=== PATIENT | female | born 1990 | race Caucasian/White ===

== ENCOUNTER 2017-05-08 17:32 | Emergency (ER) | payer MEDICAID ==
[~2017-05-08] VITALS: Ht 160 cm; Wt 70.0 kg
[2017-05-08 17:33] VITALS: BP 127/57; PULSE 83; RESP 18; TEMP 99.2; O2SAT 96
[2017-05-08 18:44] LABS: BLOOD, URINE NEG (NEG); COMMENT (UR) CULT NOT INDICATED; CULTURE IF INDICATED CULT NOT INDICATED; GLUCOSE,URINE NEG (NEG); KETONE, URINE NEG (NEG); MUCUS URINE FEW /lpf (OCC); NITRITE,URINE NEG (NEG); SQUAMOUS EPITHELIAL CELL URINE 3 /hpf (0-5); URINE COLOR YELLOW (YELLW/STRAW)
[2017-05-08] MEDS ORDERED: TYLE325T PO (18:44)
[2017-05-08] MEDS ORDERED: NAPR500 PO (18:44)
[2017-05-08] MEDS ORDERED: IRON1TAB7 PO (18:44)
--- NOTE | 2017-05-08 18:44 | PD ---
HPI Chief Complaint: Flank/Kidney Pain Time Seen by Provider: 18:13 Travel History International Travel<30 days: No Contact w/Intl Traveler<30days: No Traveled to known affect area: No History of Present Illness HPI 27-year-old female with history of recurring kidney infections presents to the emergency room for evaluation of left flank pain for the past 2 days. Patient states pain is constant. She has associated nausea without vomiting. Reports chills but has not actually taken her temperature. Patient states she fells with the urologist in [place] but has not seen him in several months. She just finished a 1 month long prescription of ciprofloxacin about 3 weeks ago. States she is trying to move down to [place] and has not established care with a PCP or urologist in the area because her insurance is not transferred yet. No other chronic medical conditions or daily medications. Denies history of kidney stones. Denies vaginal discharge. PFSH Past Medical History Diminished Hearing: No Genitourinary: Yes ?: Unknown LMP: 03/25/2017 Past Surgical History Surgical History: No Previous Surgery Social History Alcohol Use: No Tobacco Use: Yes Substance Use: No Allergies-Medications (Allergen,Severity, Reaction): Coded Allergies: Iodinated Contrast- Oral and IV Dye (Verified Allergy, Severe, ITCHING, ) latex (Verified Allergy, Severe, ITCHING , 05/08/17) Reported Meds & Prescriptions Reported Meds & Active Scripts Active Reported Tylenol (Acetaminophen) 325 Mg Tab 650 Mg PO Q6H PRN Naprosyn (Naproxen) 500 Mg Tab 500 Mg PO BID Nufera (Iron Combinations) 125-1-170 Tab 1 Tab PO DAILY Review of Systems Except as stated in HPI: all other systems reviewed are Neg Physical Exam Narrative GENERAL: Well-nourished, well-developed female in no acute distress. Afebrile. Ambulatory. SKIN: Focused skin assessment warm/dry. HEAD: Normocephalic. EYES: No scleral icterus. No injection or drainage. NECK: Supple, trachea midline. No JVD or lymphadenopathy. CARDIOVASCULAR: Regular rate and rhythm without murmurs, gallops, or rubs. RESPIRATORY: Breath sounds equal bilaterally. No accessory muscle use. GASTROINTESTINAL: Abdomen soft, non-tender, nondistended. No peritoneal signs. No rebound tenderness. BACK: Left-sided CVA tenderness. No rash. No point tenderness on palpation of the spine. Data Data Last Documented VS Vital Signs Date Time Temp Pulse Resp B/P (MAP) Pulse Ox O2 Delivery O2 Flow Rate FiO2 05/08/17 17:33 99.2 83 18 127/57 (80) 96 Room Air Orders Orders Urinalysis - C+S If Indicated (05/08/17 18:11) Complete Blood Count With Diff (05/08/17 18:53) Ed Urine Pregnancytest Poc (05/08/17 18:53) Iv Access Insert/Monitor (05/08/17 18:53) Ketorolac Inj (Toradol Inj) (05/08/17 19:00) Sodium Chloride 0.9% Flush (Ns Flush) (05/08/17 19:00) Lipase (05/08/17 18:53) Comprehensive Metabolic Panel (05/08/17 18:53) Ct Abd/Pel W/O Iv Contrast (05/08/17 20:01) Labs Laboratory Tests Test 05/08/17 18:20 05/08/17 19:05 Urine Color YELLOW Urine Turbidity CLEAR Urine pH 6.0 Urine Specific [place] 1.023 Urine Protein NEG mg/dL Urine Glucose (UA) NEG mg/dL Urine Ketones NEG mg/dL Urine Occult Blood NEG Urine Nitrite NEG Urine Bilirubin NEG Urine Urobilinogen LESS THAN 2.0 MG/DL Urine Leukocyte Esterase NEG Urine RBC LESS THAN 1 /hpf Urine WBC 1 /hpf Urine Squamous Epithelial Cells 3 /hpf Urine Mucus FEW /lpf Microscopic Urinalysis Comment CULT NOT INDICATED White Blood Count 7.9 TH/MM3 Red Blood Count 3.79 MIL/MM3 Hemoglobin 10.2 GM/DL Hematocrit 31.7 % Mean Corpuscular Volume 83.6 FL Mean Corpuscular Hemoglobin 26.9 PG Mean Corpuscular Hemoglobin Concent 32.1 % Red Cell Distribution Width 14.6 % Platelet Count 327 TH/MM3 Mean Platelet Volume 8.1 FL Neutrophils (%) (Auto) 55.1 % Lymphocytes (%) (Auto) 36.2 % Monocytes (%) (Auto) 6.7 % Eosinophils (%) (Auto) 1.2 % Basophils (%) (Auto) 0.8 % Neutrophils # (Auto) 4.4 TH/MM3 Lymphocytes # (Auto) 2.9 TH/MM3 Monocytes # (Auto) 0.5 TH/MM3 Eosinophils # (Auto) 0.1 TH/MM3 Basophils # (Auto) 0.1 TH/MM3 CBC Comment DIFF FINAL Differential Comment Blood Urea Nitrogen 12 MG/DL Creatinine 0.58 MG/DL Random Glucose 84 MG/DL Total Protein 7.0 GM/DL Albumin 3.2 GM/DL Calcium Level 8.7 MG/DL Alkaline Phosphatase 67 U/L Aspartate Amino Transf (AST/SGOT) 12 U/L Alanine Aminotransferase (ALT/SGPT) 13 U/L Total Bilirubin 0.2 MG/DL Sodium Level 139 MEQ/L Potassium Level 4.0 MEQ/L Chloride Level 107 MEQ/L Carbon Dioxide Level 28.0 MEQ/L Anion Gap 4 MEQ/L Estimat Glomerular Filtration Rate 126 ML/MIN Lipase 85 U/L MDM Medical Decision Making Medical Screen Exam Complete: Yes Emergency Medical Condition: Yes Medical Record Reviewed: Yes Differential Diagnosis Nephrolithiasis, UTI, STD, PID Narrative Course 27-year-old female presents to the emergency room for evaluation of constant, sharp left flank pain for the past 2 days. Patient has history of multiple Kidney infections as well as with urologist in [place]. She has not established with one done here. Last saw him 3 months ago. She just finished a 1 month course of ciprofloxacin 3 weeks ago. States she typically gets kidney infections that feel like this. She has associated dysuria. Denies history of kidney stones. CBC and CMP are unremarkable. UA is unremarkable. CT was obtained after normal UA to evaluate for nephrolithiasis given flank pain. CT ordered and pending, patient signed out to nighttime provider. Condition: Stable Eloisa Coleman May 08, 2017 18:44
[2017-05-08] MEDS ORDERED: SODIUM CHLORIDE 0.9% FLUSH 10 ML FLUSH IVF PRN (19:00)
[2017-05-08] MEDS ORDERED: KETOROLAC TROMETHAMINE 30 MG/ML (IVP) VIAL IV PUSH ONE (19:00)
[2017-05-08 19:42] LABS: AUTOMATED NEUTROPHIL # 4.4 TH/MM3 (1.8-7.7); BASOPHIL # 0.1 TH/MM3 (0-0.2); BASOPHIL % 0.8 % (0.0-2.0); EOSINOPHIL # 0.1 TH/MM3 (0-0.4); EOSINOPHIL % 1.2 % (0.0-4.0); HEMATOCRIT 31.7 % (35.0-46.0); HEMO FLAGS DIFF FINAL; LYMPH % 36.2 % (9.0-44.0); LYMPHOCYTE # 2.9 TH/MM3 (1.0-4.8); MEAN CELL VOLUME 83.6 FL (80.0-100.0); MEAN CORPUSCULAR HEMOGLOBIN 26.9 PG (27.0-34.0); MEAN CORPUSCULAR HGB CONC 32.1 % (32.0-36.0); MONO % 6.7 % (0.0-8.0); NEUT % 55.1 % (16.0-70.0); PLATELET COUNT 327 TH/MM3 (150-450); RED BLOOD COUNT 3.79 MIL/MM3 (4.00-5.30); RED CELL DISTRIBUTION WIDTH 14.6 % (11.6-17.2); WHITE BLOOD COUNT 7.9 TH/MM3 (4.0-11.0)
[2017-05-08 20:04] LABS: ANION GAP 4 MEQ/L (5-15); AST (GOT) 12 U/L (15-37); BLOOD UREA NITROGEN 12 MG/DL (7-18); CHLORIDE 107 MEQ/L (98-107); GLOMERULAR FILTRATION RATE 126 ML/MIN (>89); SODIUM (NA) 139 MEQ/L (136-145)
[2017-05-08 20:05] LABS: ALT (GPT) 13 U/L (10-53)
[2017-05-08 20:07] LABS: ALKALINE PHOSPHATASE 67 U/L (45-117); TOTAL BILIRUBIN ADULT 0.2 MG/DL (0.2-1.0)
--- NOTE | 2017-05-08 21:49 | RADRPT ---
EXAM DATE/TIME: 05/08/2017 20:52 [facility] COMPARISON: No previous studies available for comparison. INDICATIONS : Left flank pain past 2 days. ORAL CONTRAST: No oral contrast ingested. RADIATION DOSE: 10.75 CTDIvol (mGy) MEDICAL HISTORY : None SURGICAL HISTORY : None. ENCOUNTER: Initial ACUITY: 2 days PAIN SCALE: 7/10 LOCATION: Left flank TECHNIQUE: Renal colic protocol. Volumetric scanning of the abdomen and pelvis was performed. Using automated exposure control and adjustment of the mA and/or kV according to patient size, radiation dose was kep t as low as reasonably achievable to obtain optimal diagnostic quality images. DICOM format image da ta is available electronically for review and comparison. FINDINGS: Right side: no calcified renal stones and no evidence of hydronephrosis. The right ureter is normal in dimension and no calcified ureteral stones. Left side: No calcified renal stones and no evidence of hydronephrosis. The left ureter is normal in dimension without calcified stones. Bladder: Smooth margins no calcifications within the lumen. Other: Anteverted uterus. Fullness in both hilar regions adnexal suggesting possible ovarian cysts. No eliceo dence of free fluid. No dilated loops of small or large bowel. No calcified gallstones. CONCLUSION: Negative renal colic CT. Jesus Mcallister MD on May 08, 2017 at 21:45 Board Certified Radiologist. This report was verified electronically.
[2017-05-08] MEDS ORDERED: TRAM50 PO (21:54)
--- NOTE | 2017-05-08 21:54 | PD ---
Physical Exam Narrative GENERAL: SKIN: Warm and dry. HEAD: Atraumatic. Normocephalic. EYES: Pupils equal and round. No scleral icterus. No injection or drainage. ENT: No nasal bleeding or discharge. Mucous membranes pink and moist. NECK: Trachea midline. No JVD. CARDIOVASCULAR: Regular rate and rhythm. RESPIRATORY: No accessory muscle use. Clear to auscultation. Breath sounds equal bilaterally. GASTROINTESTINAL: Abdomen soft, non-tender, nondistended. MUSCULOSKELETAL: Extremities without clubbing, cyanosis, or edema. No obvious deformities. NEUROLOGICAL: Awake and alert. No obvious cranial nerve deficits. Motor grossly within normal limits. Five out of 5 muscle strength in the arms and legs. Normal speech. PSYCHIATRIC: Appropriate mood and affect; insight and judgment normal. Data Data Last Documented VS Vital Signs Date Time Temp Pulse Resp B/P (MAP) Pulse Ox O2 Delivery O2 Flow Rate FiO2 05/08/17 17:33 99.2 83 18 127/57 (80) 96 Room Air Orders Orders Urinalysis - C+S If Indicated (05/08/17 18:11) Complete Blood Count With Diff (05/08/17 18:53) Ed Urine Pregnancytest Poc (05/08/17 18:53) Iv Access Insert/Monitor (05/08/17 18:53) Ketorolac Inj (Toradol Inj) (05/08/17 19:00) Sodium Chloride 0.9% Flush (Ns Flush) (05/08/17 19:00) Lipase (05/08/17 18:53) Comprehensive Metabolic Panel (05/08/17 18:53) Ct Abd/Pel W/O Iv Contrast (05/08/17 20:01) Labs Laboratory Tests Test 05/08/17 18:20 05/08/17 19:05 Urine Color YELLOW Urine Turbidity CLEAR Urine pH 6.0 Urine Specific [place] 1.023 Urine Protein NEG mg/dL Urine Glucose (UA) NEG mg/dL Urine Ketones NEG mg/dL Urine Occult Blood NEG Urine Nitrite NEG Urine Bilirubin NEG Urine Urobilinogen LESS THAN 2.0 MG/DL Urine Leukocyte Esterase NEG Urine RBC LESS THAN 1 /hpf Urine WBC 1 /hpf Urine Squamous Epithelial Cells 3 /hpf Urine Mucus FEW /lpf Microscopic Urinalysis Comment CULT NOT INDICATED White Blood Count 7.9 TH/MM3 Red Blood Count 3.79 MIL/MM3 Hemoglobin 10.2 GM/DL Hematocrit 31.7 % Mean Corpuscular Volume 83.6 FL Mean Corpuscular Hemoglobin 26.9 PG Mean Corpuscular Hemoglobin Concent 32.1 % Red Cell Distribution Width 14.6 % Platelet Count 327 TH/MM3 Mean Platelet Volume 8.1 FL Neutrophils (%) (Auto) 55.1 % Lymphocytes (%) (Auto) 36.2 % Monocytes (%) (Auto) 6.7 % Eosinophils (%) (Auto) 1.2 % Basophils (%) (Auto) 0.8 % Neutrophils # (Auto) 4.4 TH/MM3 Lymphocytes # (Auto) 2.9 TH/MM3 Monocytes # (Auto) 0.5 TH/MM3 Eosinophils # (Auto) 0.1 TH/MM3 Basophils # (Auto) 0.1 TH/MM3 CBC Comment DIFF FINAL Differential Comment Blood Urea Nitrogen 12 MG/DL Creatinine 0.58 MG/DL Random Glucose 84 MG/DL Total Protein 7.0 GM/DL Albumin 3.2 GM/DL Calcium Level 8.7 MG/DL Alkaline Phosphatase 67 U/L Aspartate Amino Transf (AST/SGOT) 12 U/L Alanine Aminotransferase (ALT/SGPT) 13 U/L Total Bilirubin 0.2 MG/DL Sodium Level 139 MEQ/L Potassium Level 4.0 MEQ/L Chloride Level 107 MEQ/L Carbon Dioxide Level 28.0 MEQ/L Anion Gap 4 MEQ/L Estimat Glomerular Filtration Rate 126 ML/MIN Lipase 85 U/L [facility] Medical Record Reviewed: Yes Supervised Visit with JUAN PABLO: Yes Narrative Course ua neg for uti, ct abd/pelvis neg as read by radiologist Diagnosis Primary Impression: Left flank discomfort Patient Instructions: Flank Pain (ED), General Instructions Scripts Tramadol (Ultram) 50 Mg Tab 50 MG PO Q6H Y for PAIN, #10 TAB 0 Refills Prov: Clayton Nguyen MD 05/08/17 Disposition: 01 DISCHARGE HOME Condition: Stable Clayton Nguyen MD May 08, 2017 21:54
== END 2017-05-08 22:11 | disposition home or self-care (01) ==
LOC: NEPD 17:32
DX: R10.9 Unspecified abdominal pain (principal); R30.0 Dysuria; R68.83 Chills (without fever); Z79.899 Other long term (current) drug therapy; Z72.0 Tobacco use
CPT/HCPCS: 74176; 80053; 81001; 83690; 84703; 85025; 96374; 99285; J1885

== ENCOUNTER 2017-07-04 11:47 | Emergency (ER) | payer MEDICAID, OTHER ==
[~2017-07-04] VITALS: Ht 160 cm; Wt 72.7 kg
[~2017-07-04 11:47] MED LIST: IRON1TAB7 PO; NAPR500 PO; TRAM50 PO; TYLE325T PO
[2017-07-04 11:49] VITALS: BP 129/75; PULSE 98; RESP 14; TEMP 99.8; O2SAT 100
[2017-07-04 13:06] LABS: BASOPHIL % 0.5 % (0.0-2.0); EOSINOPHIL % 0.4 % (0.0-4.0); HEMATOCRIT 35.6 % (35.0-46.0); HEMOGLOBIN 11.8 GM/DL (11.6-15.3); LYMPH % 23.8 % (9.0-44.0); LYMPHOCYTE # 1.5 TH/MM3 (1.0-4.8); MEAN CORPUSCULAR HEMOGLOBIN 27.2 PG (27.0-34.0); MEAN CORPUSCULAR HGB CONC 33.1 % (32.0-36.0); MEAN PLATELET VOLUME 8.1 FL (7.0-11.0); MONO % 12.7 % (0.0-8.0); MONOCYTE # 0.8 TH/MM3 (0-0.9); NEUT % 62.6 % (16.0-70.0); PLATELET COUNT 337 TH/MM3 (150-450); RED BLOOD COUNT 4.34 MIL/MM3 (4.00-5.30); RED CELL DISTRIBUTION WIDTH 14.2 % (11.6-17.2); WHITE BLOOD COUNT 6.4 TH/MM3 (4.0-11.0)
[2017-07-04 13:18] LABS: BACTERIA, URINE RARE /hpf; BILIRUBIN, URINE NEG (NEG); BLOOD, URINE TRACE (NEG); GLUCOSE,URINE NEG (NEG); KETONE, URINE NEG (NEG); MUCUS URINE FEW /lpf (OCC); NITRITE,URINE NEG (NEG); PH, URINE 5.5 (5.0-8.5); SQUAMOUS EPITHELIAL CELL URINE 5 /hpf (0-5); URINE COLOR YELLOW (YELLW/STRAW); URINE LEUKOCYTE ESTERASE NEG (NEG)
[2017-07-04 13:40] LABS: ALBUMIN 3.6 GM/DL (3.4-5.0); AST (GOT) 13 U/L (15-37); BICARBONATE 26.4 MEQ/L (21.0-32.0); BLOOD UREA NITROGEN 10 MG/DL (7-18); CALCIUM 8.7 MG/DL (8.5-10.1); CHLORIDE 105 MEQ/L (98-107); CREATININE 0.71 MG/DL (0.50-1.00); GLOMERULAR FILTRATION RATE 100 ML/MIN (>89); GLUCOSE,RANDOM 86 MG/DL (74-106); SODIUM (NA) 140 MEQ/L (136-145)
[2017-07-04 13:45] LABS: ALKALINE PHOSPHATASE 68 U/L (45-117); ALT (GPT) 17 U/L (10-53); TOTAL BILIRUBIN ADULT 0.3 MG/DL (0.2-1.0)
[2017-07-04] MEDS ORDERED: PENI500T PO (14:49)
--- NOTE | 2017-07-04 15:05 | PD ---
HPI Chief Complaint: Flank/Kidney Pain Time Seen by Provider: 13:56 Travel History International Travel<30 days: No Contact w/Intl Traveler<30days: No Traveled to known affect area: No History of Present Illness HPI The patient was seen and examined in the presence of the nurse. This patient complains of sore throat. She has pain when she swallows. She also complains of fever and general achiness and has some pain in bilateral low back. No acute injury. Symptoms severity is moderate. No alleviating factors. No exacerbating factors. Duration is 3 days PFSH Past Medical History Diminished Hearing: No Genitourinary: Yes ?: Not LMP: 06/22/2017 Social History Alcohol Use: No Tobacco Use: Yes Substance Use: No Allergies-Medications (Allergen,Severity, Reaction): Coded Allergies: Iodinated Contrast- Oral and IV Dye (Verified Allergy, Severe, ITCHING, ) latex (Verified Allergy, Severe, ITCHING , 07/04/17) codeine (Verified Adverse Reaction, Intermediate, Rash, 07/04/17) Reported Meds & Prescriptions Reported Meds & Active Scripts Active Penicillin V Potassium 500 Mg Tab 500 Mg PO Q6H 7 Days Ultram (Tramadol HCl) 50 Mg Tab 50 Mg PO Q6H PRN Reported Tylenol (Acetaminophen) 325 Mg Tab 650 Mg PO Q6H PRN Naprosyn (Naproxen) 500 Mg Tab 500 Mg PO BID Nufera (Iron Combinations) 125-1-170 Tab 1 Tab PO DAILY Review of Systems General / Constitutional: Positive: Fever Eyes: No: Visual changes HENT: Positive: Sore Throat, No: Headaches Cardiovascular: No: Chest Pain or Discomfort Respiratory: No: Shortness of Breath Gastrointestinal: No: Abdominal Pain Genitourinary: Positive: Flank Pain, No: Dysuria Musculoskeletal: Positive: Pain Skin: No Rash Neurologic: No: Weakness Psychiatric: No: Depression Endocrine: No: Polydipsia Hematologic/Lymphatic: No: Easy Bruising Physical Exam Narrative GENERAL: Well-nourished, well-developed patient in no apparent distress. SKIN: Focused skin assessment reveals no rash and nodules. Skin is Warm and dry. HEAD: Atraumatic. Normocephalic. EYES: Pupils equal and round. No scleral icterus. No injection or drainage. ENT: No nasal bleeding or discharge. Mucous membranes pink and moist. Patient has enlarged right tonsillar area covered with white exudate. Uvula midline NECK: Trachea midline. No JVD. Some cervical lymphadenopathy present. No meningeal signs CARDIOVASCULAR: Regular rate and rhythm. No murmur appreciated. RESPIRATORY: No accessory muscle use. Clear to auscultation. Breath sounds equal bilaterally. GASTROINTESTINAL: Abdomen soft, non-tender, nondistended. Hepatic and splenic margins not palpable. MUSCULOSKELETAL: No obvious deformities. No clubbing. No cyanosis. No edema. NEUROLOGICAL: Awake and alert. No obvious cranial nerve deficits. Motor grossly within normal limits. Normal speech. PSYCHIATRIC: Appropriate mood and affect; insight and judgment normal. Data Data Last Documented VS Vital Signs Date Time Temp Pulse Resp B/P (MAP) Pulse Ox O2 Delivery O2 Flow Rate FiO2 07/04/17 14:23 16 07/04/17 11:49 99.8 98 129/75 (93) 100 Orders Orders Complete Blood Count With Diff (07/04/17 12:08) Comprehensive Metabolic Panel (07/04/17 12:08) Urinalysis - C+S If Indicated (07/04/17 12:08) Ed Urine Pregnancytest Poc (07/04/17 12:08) Influenzae A/B Antigen (07/04/17 12:08) Group A Rapid Strep Screen (07/04/17 12:24) Strep Culture (Group A) (07/04/17 12:30) Labs Laboratory Tests Test 07/04/17 12:30 White Blood Count 6.4 TH/MM3 Red Blood Count 4.34 MIL/MM3 Hemoglobin 11.8 GM/DL Hematocrit 35.6 % Mean Corpuscular Volume 82.0 FL Mean Corpuscular Hemoglobin 27.2 PG Mean Corpuscular Hemoglobin Concent 33.1 % Red Cell Distribution Width 14.2 % Platelet Count 337 TH/MM3 Mean Platelet Volume 8.1 FL Neutrophils (%) (Auto) 62.6 % Lymphocytes (%) (Auto) 23.8 % Monocytes (%) (Auto) 12.7 % Eosinophils (%) (Auto) 0.4 % Basophils (%) (Auto) 0.5 % Neutrophils # (Auto) 4.0 TH/MM3 Lymphocytes # (Auto) 1.5 TH/MM3 Monocytes # (Auto) 0.8 TH/MM3 Eosinophils # (Auto) 0.0 TH/MM3 Basophils # (Auto) 0.0 TH/MM3 CBC Comment DIFF FINAL Differential Comment Urine Color YELLOW Urine Turbidity HAZY Urine pH 5.5 Urine Specific [place] 1.015 Urine Protein TRACE mg/dL Urine Glucose (UA) NEG mg/dL Urine Ketones NEG mg/dL Urine Occult Blood TRACE Urine Nitrite NEG Urine Bilirubin NEG Urine Urobilinogen LESS THAN 2.0 MG/DL Urine Leukocyte Esterase NEG Urine RBC 1 /hpf Urine WBC 4 /hpf Urine Squamous Epithelial Cells 5 /hpf Urine Bacteria RARE /hpf Urine Mucus FEW /lpf Microscopic Urinalysis Comment CULT NOT INDICATED Blood Urea Nitrogen 10 MG/DL Creatinine 0.71 MG/DL Random Glucose 86 MG/DL Total Protein 8.0 GM/DL Albumin 3.6 GM/DL Calcium Level 8.7 MG/DL Alkaline Phosphatase 68 U/L Aspartate Amino Transf (AST/SGOT) 13 U/L Alanine Aminotransferase (ALT/SGPT) 17 U/L Total Bilirubin 0.3 MG/DL Sodium Level 140 MEQ/L Potassium Level 3.9 MEQ/L Chloride Level 105 MEQ/L Carbon Dioxide Level 26.4 MEQ/L Anion Gap 9 MEQ/L Estimat Glomerular Filtration Rate 100 ML/MIN MDM Medical Decision Making Medical Screen Exam Complete: Yes Emergency Medical Condition: Yes Medical Record Reviewed: Yes Differential Diagnosis Tonsillitis, strep pharyngitis, peritonsillar abscess Narrative Course I have reviewed the patient's electronic medical record. CBC is normal Metabolic profile is normal Urinalysis is clean Influenza swab is negative Strep swab was also negative but given her clinical presentation and the fact that this is a specific test and not overly sensitive, I think she has an acute tonsillitis likely from strep. She lacks viral symptoms. I wrote her one week of penicillin VK Diagnosis Primary Impression: Tonsillitis with exudate Additional Instructions: The patient was advised to follow up with their physician and return if they worsen. Med/Other Pt SpecificInfo: Prescription(s) given Scripts Penicillin V Potassium (Penicillin V Potassium) 500 Mg Tab 500 MG PO Q6H for Infection for 7 Days, #28 TAB 0 Refills Prov: Nayan Schaefer MD 07/04/17 Disposition: 01 DISCHARGE HOME Condition: Stable Nayan Schaefer MD Jul 04, 2017 15:05
== END 2017-07-04 15:16 | disposition home or self-care (01) ==
LOC: NEPD 11:47
DX: J03.90 Acute tonsillitis, unspecified (principal); M54.5 Low back pain; Z72.0 Tobacco use; Z79.899 Other long term (current) drug therapy; Z88.5 Allergy status to narcotic agent
CPT/HCPCS: 80053; 81001; 84703; 85025; 87081; 87804; 87880; 99283

== ENCOUNTER 2017-11-24 14:10 | Emergency (ER) | payer OTHER ==
[~2017-11-24] VITALS: Ht 160 cm; Wt 75.0 kg
[~2017-11-24 14:10] MED LIST changes: +PENI500T PO
[2017-11-24 14:14] VITALS: BP 130/70; PULSE 75; RESP 18; TEMP 98; O2SAT 100
--- NOTE | 2017-11-24 14:41 | PD ---
HPI Chief Complaint: Abdominal Pain Time Seen by Provider: 14:32 Travel History International Travel<30 days: No Contact w/Intl Traveler<30days: No Traveled to known affect area: No History of Present Illness HPI 27-year-old female presents emergency department for evaluation of pelvic pain worsening over the last month. Patient states about 2 weeks ago she began having a vaginal discharge. She denies any fever or chills. She denies any burning with urination. She states she cannot be as her last menstrual cycle was November 12. She is in a monogamous relationship and is not concerned about STD. Patient denies any nausea, vomiting, or diarrhea. She has no other symptoms to report. PFSH Past Medical History Diminished Hearing: No Genitourinary: Yes ?: Not LMP: 11/12/17 Social History Alcohol Use: No Tobacco Use: Yes Substance Use: No Allergies-Medications (Allergen,Severity, Reaction): Coded Allergies: Iodinated Contrast- Oral and IV Dye (Verified Allergy, Severe, ITCHING, 11/24/17) latex (Verified Allergy, Severe, ITCHING , 11/24/17) codeine (Verified Adverse Reaction, Intermediate, Rash, 11/24/17) Reported Meds & Prescriptions Reported Meds & Active Scripts Active Doxycycline Hyclate 100 Mg Cap 100 Mg PO BID Review of Systems Except as stated in HPI: all other systems reviewed are Neg Physical Exam Narrative GENERAL: Well-nourished, well-developed female patient in no acute distress HEAD: Normocephalic. EYES: No scleral icterus. No injection or drainage. NECK: Supple, trachea midline. No JVD or lymphadenopathy. CARDIOVASCULAR: Regular rate and rhythm without murmurs, gallops, or rubs. RESPIRATORY: Breath sounds equal bilaterally. No accessory muscle use. GASTROINTESTINAL: Abdomen soft, non-tender, with suprapubic tenderness, mild guarding. No rebound tenderness. GENITOURINARY: Normal external genitalia without lesions or erythema. Vaginal vault with thick white discharge.. Cervical os was closed without drainage. cervical motion tenderness. Uterus tender and but nonenlarged. Bilateral adnexa nontender without masses. MUSCULOSKELETAL: No cyanosis, or edema. BACK: Nontender without obvious deformity. No CVA tenderness. Data Data Last Documented VS Vital Signs Date Time Temp Pulse Resp B/P (MAP) Pulse Ox O2 Delivery O2 Flow Rate FiO2 11/24/17 14:14 98.0 75 18 130/70 (90) 100 Orders Orders Wet Prep Profile (11/24/17 15:08) Gc And Chlamydia Pcr (11/24/17 15:08) Urinalysis - C+S If Indicated (11/24/17 15:08) Ed Urine Pregnancytest Poc (11/24/17 15:08) Ceftriaxone Inj (Rocephin Inj) (11/24/17 16:45) Azithromycin (Zithromax) (11/24/17 16:45) Ed Discharge Order (11/24/17 16:46) Labs Laboratory Tests Test 11/24/17 15:30 Urine Color LIGHT-YELLOW Urine Turbidity CLEAR Urine pH 7.5 Urine Specific [place] 1.015 Urine Protein NEG mg/dL Urine Glucose (UA) NEG mg/dL Urine Ketones NEG mg/dL Urine Occult Blood NEG Urine Nitrite NEG Urine Bilirubin NEG Urine Urobilinogen LESS THAN 2.0 MG/DL Urine Leukocyte Esterase NEG Urine RBC 1 /hpf Urine WBC 3 /hpf Urine Squamous Epithelial Cells 5 /hpf Urine Transitional Epithelial Cells 1 /hpf Urine Mucus FEW /lpf Microscopic Urinalysis Comment CULT NOT INDICATED Clue Cells (Wet Prep) NONE SEEN Vaginal Trichomonas (Wet Prep) NONE SEEN Vaginal Yeast (Wet Prep) NONE SEEN MDM Medical Decision Making Medical Screen Exam Complete: Yes Emergency Medical Condition: Yes Medical Record Reviewed: Yes Differential Diagnosis Cystitis versus pyelonephritis versus STD versus PID Narrative Course 27-year-old female presents emergency department for evaluation of lower abdominal pain. Patient does have suprapubic tenderness to palpation, cervical motion tenderness, and her uterus is tender. Urinalysis and wet prep are negative. GC PCR is pending. Patient be treated empirically. She is counseled on safe sex practices and encouraged follow-up with primary care provider and gynecology. She agrees to return immediately with acute worsening of symptoms. Diagnosis Primary Impression: Pelvic pain Additional Impression: Vaginal discharge Referrals: Instruction Assistant Principal Primary Care Physician Patient Instructions: General Instructions, Pelvic Pain (ED) Additional Instructions: Follow-up with a primary care provider See gynecology evaluation Return immediately with acute worsening of symptoms Med/Other Pt SpecificInfo: Prescription(s) given Scripts Doxycycline Hyclate (Doxycycline Hyclate) 100 Mg Cap 100 MG PO BID for Infection, #20 CAP 0 Refills Prov: Cindy Doran 11/24/17 Disposition: 01 DISCHARGE HOME Condition: Stable Cindy Doran Nov 24, 2017 14:41
[2017-11-24 16:12] LABS: BILIRUBIN, URINE NEG (NEG); BLOOD, URINE NEG (NEG); GLUCOSE,URINE NEG (NEG); KETONE, URINE NEG (NEG); MUCUS URINE FEW /lpf (OCC); NITRITE,URINE NEG (NEG); PH, URINE 7.5 (5.0-8.5); SQUAMOUS EPITHELIAL CELL URINE 5 /hpf (0-5); TRANSITIONAL EPI CELLS, URINE 1 /hpf; URINE COLOR LIGHT-YELLOW (YELLW/STRAW); URINE LEUKOCYTE ESTERASE NEG (NEG)
[2017-11-24] MEDS ORDERED: AZITHROMYCIN 250 MG TAB PO ONE (16:45)
[2017-11-24] MEDS ORDERED: cefTRIAXone 250 MG VIAL IM ONE (16:45)
[2017-11-24] MEDS ORDERED: DOXY100C PO (16:47)
== END 2017-11-24 19:47 | disposition home or self-care (01) ==
LOC: NEPD 14:10
DX: R10.2 Pelvic and perineal pain (principal); N89.8 Other specified noninflammatory disorders of vagina; Z72.0 Tobacco use; Z88.5 Allergy status to narcotic agent
CPT/HCPCS: 81001; 84703; 87210; 87491; 87591; 96372; 99283; J0696

== ENCOUNTER 2017-11-26 01:37 | Emergency (ER) | payer OTHER ==
[~2017-11-26] VITALS: Ht 160 cm; Wt 75.0 kg
[~2017-11-26 01:37] MED LIST changes: +DOXY100C PO; -IRON1TAB7 PO; -NAPR500 PO; -PENI500T PO; -TRAM50 PO; -TYLE325T PO
[2017-11-26 01:42] VITALS: BP 115/71; PULSE 73; RESP 18; TEMP 98.5; O2SAT 100
[2017-11-26 02:34] LABS: BILIRUBIN, URINE NEG (NEG); BLOOD, URINE NEG (NEG); GLUCOSE,URINE NEG (NEG); KETONE, URINE TRACE mg/dL (NEG); MUCUS URINE MANY /lpf (OCC); NITRITE,URINE NEG (NEG); SQUAMOUS EPITHELIAL CELL URINE 1 /hpf (0-5); URINE COLOR YELLOW (YELLW/STRAW); URINE LEUKOCYTE ESTERASE NEG (NEG)
[2017-11-26] MEDS ORDERED: SODIUM CHLOR 0.9% 1000 ML INJ 1,000 ML IV ONE (02:45)
[2017-11-26] MEDS ORDERED: KETOROLAC TROMETHAMINE 30 MG/ML (IVP) VIAL IV PUSH ONE (02:45)
[2017-11-26] MEDS ORDERED: PROCHLORPERAZINE INJ 10 MG/2 ML VIAL IV PUSH ONE (02:45)
[2017-11-26 03:01] VITALS: O2SAT 98
--- NOTE | 2017-11-26 03:10 | PD ---
HPI Chief Complaint: Back/ Neck Pain or Injury Time Seen by Provider: 02:06 Travel History International Travel<30 days: No Contact w/Intl Traveler<30days: No Traveled to known affect area: No History of Present Illness HPI The patient is a 27 year old female who presents to the [facility] emergency department with a history of pelvic pain that she reports began over the last month and has been gradually worsening with time. The patient reports that she was seen on November 25, 2007 pelvic infection. She is currently on doxycycline. The patient reports a prior history 2 months ago also having a kidney infection. The patient reports that today she was awakened from sound sleep with right-sided flank pain. She was concerned about a possible recurrence of a kidney infection, though she decided to come to the emergency department. She reports that ibuprofen has not been alleviating her pain. She reports having nausea without vomiting. She denies having any diarrhea. She last moved her bowels earlier today. The patient reports that she was experiencing a vaginal discharge over the last couple weeks prior to being evaluated in the emergency department on November 24. The patient did have a pelvic examination done at that time. On review of systems otherwise, the patient denies having any known recent fevers, cough or congestion, neck pain, chest pain, shortness of breath, dysuria, urinary frequency, urinary urgency, hematuria, or neurologic symptoms. The patient denies any trauma, heavy lifting , or new exercise program that could have contributed to her right-sided flank pain. LMP November 12, 2017. [facility] Past Medical History Narrative Medical The patient's past medical history is significant for a kidney infection 2 months ago. Asthma: Yes Diminished Hearing: No Genitourinary: Yes Tetanus Vaccination: Unknown Influenza Vaccination: No ?: Not LMP: 11/12/2017 : 1 Para: 1 Miscarriage: 0 : 0 Past Surgical History Surgical History: No Previous Surgery Social History Alcohol Use: No Tobacco Use: Yes (1ppd) Substance Use: No Allergies-Medications (Allergen,Severity, Reaction): Coded Allergies: Iodinated Contrast- Oral and IV Dye (Verified Allergy, Severe, ITCHING, 05/05) latex (Verified Allergy, Severe, ITCHING , 11/26/17) codeine (Verified Adverse Reaction, Intermediate, Rash, 11/26/17) Reported Meds & Prescriptions Reported Meds & Active Scripts Active Doxycycline Hyclate 100 Mg Cap 100 Mg PO BID Review of Systems Except as stated in HPI: all other systems reviewed are Neg General / Constitutional: No: Fever Eyes: No: Visual changes HENT: No: Headaches Cardiovascular: No: Chest Pain or Discomfort Respiratory: No: Shortness of Breath Gastrointestinal: Positive: Nausea, Abdominal Pain, No: Vomiting, Diarrhea, Changes in Bowel Habits, Indigestion, Loss of Appetite Genitourinary: Positive: Pelvic Pain, Flank Pain (Right-sided flank), No: Urgency, Frequency, Dysuria Musculoskeletal: No: Pain Skin: No Rash Neurologic: No: Weakness Psychiatric: No: Depression Endocrine: No: Polydipsia Hematologic/Lymphatic: No: Easy Bruising Physical Exam Narrative General: The patient is a well-developed well-nourished female in no acute distress. Head and Neck exam: Head is normocephalic atraumatic. Eyes: EOMI, pupils are equal round and reactive to light. Nose: Midline septum with pink mucous membranes Mouth: Dentition unremarkable. Moist mucus membranes. Posterior oropharynx is not erythematous. No tonsillar hypertrophy. Uvula midline. Airway patent. Neck: No palpable lymphadenopathy. No nuchal rigidity. No thyromegaly. Cardiovascular: Regular rate and rhythm without murmurs, gallops, or rubs. No pulse deficit to the extremities on simultaneous auscultation and palpation of her radial artery. Lungs: Clear to auscultation bilaterally. No wheezes, rhonchi, or rales. Abdomen: Soft, with tenderness on palpation of bilateral lower quadrants of the abdomen in the suprapubic area, no other tenderness on palpation of all 4 quadrants of the abdomen. No guarding, rebound, or rigidity. Normal bowel sounds are audible. No tenderness on palpation of McBurney's point. Extremities: No clubbing, cyanosis, or edema. 2+ pulses in all 4 extremities. Back: No spinous process tenderness to palpation. The patient reports right-sided CVA tenderness on palpation. Neurologic Exam: Grossly nonfocal. Skin Exam: No rash noted. Intact skin that is warm and dry. Data Data Last Documented VS Vital Signs Date Time Temp Pulse Resp B/P (MAP) Pulse Ox O2 Delivery O2 Flow Rate FiO2 11/26/17 03:01 98 Room Air 11/26/17 01:42 98.5 73 18 115/71 (86) Orders Orders Urinalysis - C+S If Indicated (11/26/17 02:09) Complete Blood Count With Diff (11/26/17 02:32) Comprehensive Metabolic Panel (11/26/17 02:32) C-Reactive Protein (Crp) (11/26/17 02:32) Lipase (11/26/17 02:32) Iv Access Insert/Monitor (11/26/17 02:32) Ecg Monitoring (11/26/17 02:32) Oximetry (11/26/17 02:32) Ed Urine Pregnancytest Poc (11/26/17 02:32) Sodium Chlor 0.9% 1000 Ml Inj (Ns 1000 M (11/26/17 02:45) Prochlorperazine Inj (Compazine Inj) (11/26/17 02:45) Ketorolac Inj (Toradol Inj) (11/26/17 02:45) Ct Abd/Pel W/O Iv Contrast (11/26/17 02:32) Labs Laboratory Tests Test 11/26/17 02:18 11/26/17 03:03 Urine Color YELLOW Urine Turbidity CLEAR Urine pH 6.0 Urine Specific [place] 1.042 Urine Protein 30 mg/dL Urine Glucose (UA) NEG mg/dL Urine Ketones TRACE mg/dL Urine Occult Blood NEG Urine Nitrite NEG Urine Bilirubin NEG Urine Urobilinogen LESS THAN 2.0 MG/DL Urine Leukocyte Esterase NEG Urine RBC LESS THAN 1 /hpf Urine WBC 2 /hpf Urine Squamous Epithelial Cells 1 /hpf Urine Mucus MANY /lpf Microscopic Urinalysis Comment CULT NOT INDICATED White Blood Count 9.1 TH/MM3 Red Blood Count 3.85 MIL/MM3 Hemoglobin 10.1 GM/DL Hematocrit 30.9 % Mean Corpuscular Volume 80.1 FL Mean Corpuscular Hemoglobin 26.1 PG Mean Corpuscular Hemoglobin Concent 32.6 % Red Cell Distribution Width 15.0 % Platelet Count 384 TH/MM3 Mean Platelet Volume 7.8 FL Neutrophils (%) (Auto) 54.9 % Lymphocytes (%) (Auto) 35.9 % Monocytes (%) (Auto) 6.8 % Eosinophils (%) (Auto) 1.6 % Basophils (%) (Auto) 0.8 % Neutrophils # (Auto) 5.0 TH/MM3 Lymphocytes # (Auto) 3.3 TH/MM3 Monocytes # (Auto) 0.6 TH/MM3 Eosinophils # (Auto) 0.1 TH/MM3 Basophils # (Auto) 0.1 TH/MM3 CBC Comment DIFF FINAL Differential Comment Blood Urea Nitrogen 12 MG/DL Creatinine 0.84 MG/DL Random Glucose 87 MG/DL Total Protein 7.1 GM/DL Albumin 3.4 GM/DL Calcium Level 8.5 MG/DL Alkaline Phosphatase 69 U/L Aspartate Amino Transf (AST/SGOT) 12 U/L Alanine Aminotransferase (ALT/SGPT) 18 U/L Total Bilirubin 0.2 MG/DL Sodium Level 139 MEQ/L Potassium Level 3.8 MEQ/L Chloride Level 106 MEQ/L Carbon Dioxide Level 26.0 MEQ/L Anion Gap 7 MEQ/L Estimat Glomerular Filtration Rate 82 ML/MIN C-Reactive Protein 0.35 MG/DL Lipase 80 U/L MDM Medical Decision Making Medical Screen Exam Complete: Yes Emergency Medical Condition: Yes Medical Record Reviewed: Yes Differential Diagnosis Musculoskeletal strain, versus pyelonephritis, versus kidney stone Narrative Course During the course of the patient's emergency department visit, the patient's history, examination, and differential diagnosis were reviewed with the patient. The patient was placed on a personnel monitor with oximetry and frequent blood pressure monitoring. The patient had IV access obtained and blood work sent for analysis. The patient was initially provided normal saline 1 L IV fluid bolus, Compazine 5 mg IV for nausea, Toradol 15 mg IV for pain. The patient's laboratory studies were reviewed and remarkable for a urinalysis that shows concentrated urine 30 protein trace ketones, many mucus, culture not indicated. A white count of 9.1, hemoglobin 10.1, platelets 384 with a normal differential, CMP is remarkable for GFR of 82, AST 12, C-reactive protein is 0.35, lipase 80 Radiology studies were reviewed and remarkable for Last Impressions Abdomen/Pelvis CT 11/26/17 0232 Signed Impressions: CONCLUSION: No acute findings in the abdomen and pelvis. Given the patient's recurrent nature of her flank pain and pelvic pain, the patient was instructed regarding the importance of following up with a primary care physician for continued evaluation. She is instructed to follow-up in the next 2-3 days. The patient will be discharged home with a prescription for an anti-inflammatory pain medication and a muscle relaxer as the flank pain could be related to musculoskeletal strain. Additionally, the patient is instructed to complete the full course of antibiotic that was previously prescribed. The patient is resting comfortably and feels better, is alert and in no distress. The patient's results and examination findings were discussed with the patient. The repeat examination is unremarkable and benign. The history, exam, diagnostic testing, and current condition do not suggest any significant pathology to warrant further testing, continued ED treatment, admission, or surgical evaluation at this point. The vital signs have been stable. The patient does not have uncontrollable pain, intractable vomiting, or other significant symptoms. The patient's condition is stable and appropriate for discharge. The patient will pursue further outpatient evaluation with a primary care physician or other designated or consulting physician as indicated in the discharge instructions. The patient is instructed to report back to the emergency department immediately for reexamination in the mean time if she develops any new or worsening signs or symptoms. The patient expressed understanding and was agreeable with this plan. Diagnosis Primary Impression: Pelvic pain Additional Impression: Flank pain Referrals: [facility] 2 days Patient Instructions: Flank Pain (ED), General Instructions, Pelvic Pain in Women (ED) Additional Instructions: Given the patient's recurrent nature of her flank pain and pelvic pain, the patient was instructed regarding the importance of following up with a primary care physician for continued evaluation. She is instructed to follow-up in the next 2-3 days. The patient will be discharged home with a prescription for an anti-inflammatory pain medication and a muscle relaxer as the flank pain could be related to musculoskeletal strain. Additionally, the patient is instructed to complete the full course of antibiotic that was previously prescribed. Med/Other Pt SpecificInfo: Prescription(s) given Scripts Cyclobenzaprine (Flexeril) 5 Mg Tab 5 MG PO TID Y for SPASM, #12 TAB 0 Refills Prov: Tiffanie Gates MD 11/26/[address] (EC-Naprosyn) 500 Mg Tabdr 500 MG PO BID Y for PAIN GREATER THAN 5, #10 TAB 0 Refills Prov: Tiffanie Gates MD 11/26/17 Disposition: 01 DISCHARGE HOME Condition: Stable Tiffanie Gates MD Nov 26, 2017 03:10
[2017-11-26 03:18] LABS: BASOPHIL # 0.1 TH/MM3 (0-0.2); BASOPHIL % 0.8 % (0.0-2.0); EOSINOPHIL # 0.1 TH/MM3 (0-0.4); EOSINOPHIL % 1.6 % (0.0-4.0); HEMATOCRIT 30.9 % (35.0-46.0); HEMOGLOBIN 10.1 GM/DL (11.6-15.3); LYMPH % 35.9 % (9.0-44.0); LYMPHOCYTE # 3.3 TH/MM3 (1.0-4.8); MEAN CELL VOLUME 80.1 FL (80.0-100.0); MEAN CORPUSCULAR HEMOGLOBIN 26.1 PG (27.0-34.0); MEAN CORPUSCULAR HGB CONC 32.6 % (32.0-36.0); MEAN PLATELET VOLUME 7.8 FL (7.0-11.0); MONO % 6.8 % (0.0-8.0); MONOCYTE # 0.6 TH/MM3 (0-0.9); NEUT % 54.9 % (16.0-70.0); PLATELET COUNT 384 TH/MM3 (150-450); RED BLOOD COUNT 3.85 MIL/MM3 (4.00-5.30); WHITE BLOOD COUNT 9.1 TH/MM3 (4.0-11.0)
[2017-11-26 03:41] LABS: ALBUMIN 3.4 GM/DL (3.4-5.0); ALT (GPT) 18 U/L (10-53); AST (GOT) 12 U/L (15-37); BLOOD UREA NITROGEN 12 MG/DL (7-18); C-REACTIVE PROTEIN 0.35 MG/DL (0.00-0.30); CALCIUM 8.5 MG/DL (8.5-10.1); CHLORIDE 106 MEQ/L (98-107); CREATININE 0.84 MG/DL (0.50-1.00); GLOMERULAR FILTRATION RATE 82 ML/MIN (>89); GLUCOSE,RANDOM 87 MG/DL (74-106); SODIUM (NA) 139 MEQ/L (136-145)
[2017-11-26 03:43] LABS: ALKALINE PHOSPHATASE 69 U/L (45-117); TOTAL BILIRUBIN ADULT 0.2 MG/DL (0.2-1.0); TOTAL PROTEIN 7.1 GM/DL (6.4-8.2)
--- NOTE | 2017-11-26 04:59 | RADRPT ---
EXAM DATE: 11/26/2017 4:46 AM EDT AGE/SEX: 27 years / Female INDICATIONS: Bilateral flank pain. CLINICAL DATA: This is the patient's initial encounter. Patient reports that signs and symptoms have been present for 1 day and indicates a pain score of 5/10. MEDICAL/SURGICAL HISTORY: None. None. RADIATION DOSE: 12.04 CTDI (mGy) COMPARISON: [facility] [place], CT ABDOMEN & PELVIS W/O CONTRAST, 05/08/2017. . TECHNIQUE: Multiple contiguous axial images were obtained through the abdomen. Images were obtained using multiple row detector helical technique. Using dose reduction techniques, radiation dose was ke pt as low as reasonably achievable to obtain optimal diagnostic quality images. FINDINGS: Lower Lungs: The visualized lower lungs are clear. Liver: The liver has a homogeneous density without space-occupying lesion. There is no dilation of th e biliary tree. Spleen: Homogeneous density without enlargement. Pancreas: Unremarkable without mass or calcification. Kidneys: Normal in size and shape. No evidence of mass or hydronephrosis. Adrenal Glands: Unremarkable. Aorta: The aorta and proximal iliac vessels are grossly unremarkable without aneurysmal dilation. Bowel/Mesentery: The bowel loops are grossly unremarkable. The cecum and sigmoid colon have a normal configuration. Abdominal Wall: Intact. Retroperitoneum: No evidence of adenopathy in the retrocrural, para-aortic, or deep pelvic regions. Bladder: Contours are smooth. Reproductive Organs: No abnormal masses or calcifications seen. Inguinal: The inguinal region is unremarkable without evidence of adenopathy. Bony Structures: Unremarkable. CONCLUSION: No acute findings in the abdomen and pelvis. Electronically signed by: Fortino Magdaleno MD 11/26/2017 4:58 AM EDT
[2017-11-26] MEDS ORDERED: CYCL5TAB PO (05:13)
[2017-11-26] MEDS ORDERED: NAPR-810 PO (05:13)
== END 2017-11-26 05:23 | disposition home or self-care (01) ==
LOC: NEPC 01:37
DX: R10.2 Pelvic and perineal pain (principal); F17.200 Nicotine dependence, unspecified, uncomplicated; N89.8 Other specified noninflammatory disorders of vagina; J45.909 Unspecified asthma, uncomplicated
CPT/HCPCS: 74176; 80053; 81001; 83690; 84703; 85025; 86140; 96361; 96374; 96375; 99284; J0780; J1885; J7030